=== PATIENT | female | born 2000 | race Caucasian/White ===

== ENCOUNTER 2020-12-21 17:37 | Emergency (ER) | payer OTHER ==
[2020-12-21 18:01] VITALS: TEMP 97.5; BMI 37.8
[2020-12-21 23:00] VITALS: BP 111/72; PULSE 94
== END 2020-12-21 23:09 | disposition home or self-care (01) ==
LOC: JER 17:37
DX: I80.8 Phlebitis and thrombophlebitis of other sites (principal)
CPT/HCPCS: 93971; 99284-25

== ENCOUNTER 2021-01-11 09:19 | Emergency (ER) | payer OTHER ==
[2021-01-11 09:38] VITALS: BMI 36.8
[2021-01-11] MEDS ORDERED: SODIUM CHLORIDE 1,000 ML IV STA (09:45)
[2021-01-11] MEDS ORDERED: ACETAMINOPHEN 1000 MG/100 ML VIAL (NON FORMULARY) IVPB ONE (09:45)
[2021-01-11] MEDS ORDERED: ONDANSETRON 4 MG/2 ML VIAL IVPUSH ONE (09:45)
[2021-01-11 10:52] LABS: BASO % 0.3 % (0-2.0); EOS % 0.1 % (0-4.5); HEMATOCRIT 39.9 % (32.4-45.2); HEMOGLOBIN 13.9 GM/dL (10.7-15.3); LYMPH % 23.8 % (8-40); MCH 31.7 pg (25.7-33.7); MCHC 34.8 g/dl (32.0-36.0); MEAN CELL VOLUME 91.2 fl (80-96); MEAN PLT VOLUME 8.4 fl (7.5-11.1); MONO % 9.6 % (3.8-10.2); NEUT % 66.2 % (42.8-82.8); PLATELET COUNT 187 K/MM3 (134-434); RBC 4.37 M/mm3 (3.60-5.2); RDW 12.9 % (11.6-15.6); WHITE BLOOD COUNT 4.3 K/mm3 (4.0-10.0)
[2021-01-11 11:14] LABS: POTASSIUM 3.9 mmol/L (3.5-5.1)
[2021-01-11 11:17] LABS: BLOOD UREA NITROGEN 13.6 mg/dL (7-18); CALCIUM 9.4 mg/dL (8.5-10.1)
[2021-01-11 11:18] LABS: ALBUMIN 3.9 g/dl (3.4-5.0); MAGNESIUM 2.1 mg/dL (1.8-2.4)
[2021-01-11 11:20] LABS: CREATININE 0.8 mg/dL (0.55-1.3)
[2021-01-11 11:22] LABS: BILIRUBIN,TOTAL 0.6 mg/dL (0.2-1); TOT PROT 7.9 g/dl (6.4-8.2)
[2021-01-11 11:50] LABS: EPI CELLS >36 /uL (0-25.1); HCG,QUALITATIVE URINE Negative; HYALINE CASTS 18 /uL (0-3.1); URINE APPEARANCE CLOUDY; URINE BACTERIA 944 /uL (0-1359); URINE BILIRUBIN 2+ (NEGATIVE); URINE COLOR DK YELLOW; URINE GLUCOSE (UA) NEGATIVE (NEGATIVE); URINE KETONE 4+ (NEGATIVE); URINE LEUK ESTERASE TRACE (NEGATIVE); URINE NITRITE NEGATIVE (NEGATIVE); URINE PROTEIN 2+ (NEGATIVE); URINE WBC 96 /uL (0-25.8)
[2021-01-11 13:01] VITALS: BP 106/63; PULSE 74; TEMP 99
== END 2021-01-11 13:31 | disposition home or self-care (01) ==
LOC: JER 09:19
PROC: 3E0337Z Introduction of Electrolytic and Water Balance Substance into Peripheral Vein, Percutaneous Approach (ICD-10-PCS; principal; 2021-01-11)
PROC: 3E033GC Introduction of Other Therapeutic Substance into Peripheral Vein, Percutaneous Approach (ICD-10-PCS; principal; 2021-01-11)
DX: R11.2 Nausea with vomiting, unspecified (principal); E86.0 Dehydration
CPT/HCPCS: 36415; 80053; 81003; 83735; 84703; 85025; 87086; 87186; 99284-25; J0131